=== PATIENT | female | born 1960 | race Caucasian/White ===

== ENCOUNTER → 2018-12-23 | Outpatient (CLI) | payer OTHER ==
[~2018-12-23] MED LIST: HYDR-3237 PO; STATIN; flexeril
== END | disposition home or self-care (01) ==
LOC: CFH 16:28
PROVIDERS: ATTEND Nurse Practitioner Primary Care
DX: M47.814 Spondylosis without myelopathy or radiculopathy, thoracic region (principal); M41.84 Other forms of scoliosis, thoracic region; E78.2 Mixed hyperlipidemia; I10 Essential (primary) hypertension; Z79.899 Other long term (current) drug therapy
CPT/HCPCS: 72072

== ENCOUNTER 2020-12-26 08:53 | Outpatient (CLI) | payer MEDICARE ==
[2020-12-26] MEDS ORDERED: MIDAZOLAM 1 MG/ML, 5ML ONE (09:50)
[2020-12-26] MEDS ORDERED: FENTANYL PF 100 MCG/2ML ONE (09:50)
[2020-12-26] MEDS ORDERED: GADOTERATE 10 MMOL/20ML SYR ONE (10:18)
== END 2020-12-26 23:59 | disposition home or self-care (01) ==
LOC: RAD 08:53
PROVIDERS: ATTEND Nurse Practitioner Primary Care
DX: R41.3 Other amnesia (principal); R51.9 Headache, unspecified; G93.89 Other specified disorders of brain; I10 Essential (primary) hypertension; E78.5 Hyperlipidemia, unspecified; G47.00 Insomnia, unspecified; F17.290 Nicotine dependence, other tobacco product, uncomplicated; Z79.899 Other long term (current) drug therapy; Z88.8 Allergy status to other drugs, medicaments and biological substances
CPT/HCPCS: 70553; 99156; 99157; A9575; J2250; J3010